=== PATIENT | female | born 1960 | race Caucasian/White ===

== ENCOUNTER 2022-05-16 14:22 | Outpatient (CLI) | payer OTHER | END 2022-05-16 14:23 | disposition home or self-care (01) | LOC: CSHWCC 14:22 | PROVIDERS: ATTEND Nurse Practitioner Family | DX: I87.331 Chronic venous hypertension (idiopathic) with ulcer and inflammation of right lower extremity (principal); I87.312 Chronic venous hypertension (idiopathic) with ulcer of left lower extremity; L97.819 Non-pressure chronic ulcer of other part of right lower leg with unspecified severity; L97.829 Non-pressure chronic ulcer of other part of left lower leg with unspecified severity; R60.0 Localized edema | CPT/HCPCS: 29581; 36416; 99204; G0463 ==

== ENCOUNTER 2022-05-16 16:48 | Outpatient (CLI) | payer OTHER, SELFPAY | END 2022-05-16 16:49 | disposition home or self-care (01) | LOC: CSHULT 16:48 | PROVIDERS: ATTEND Nurse Practitioner Family | DX: I87.332 Chronic venous hypertension (idiopathic) with ulcer and inflammation of left lower extremity (principal); L97.819 Non-pressure chronic ulcer of other part of right lower leg with unspecified severity ==

== ENCOUNTER 2022-06-06 09:54 | Outpatient (CLI) | payer SELFPAY | END 2022-06-06 09:55 | disposition home or self-care (01) | LOC: CSHWCC 09:54 | PROVIDERS: ATTEND Preventive Medicine Undersea and Hyperbaric Medicine | DX: I87.312 Chronic venous hypertension (idiopathic) with ulcer of left lower extremity (principal); L97.829 Non-pressure chronic ulcer of other part of left lower leg with unspecified severity; R60.0 Localized edema | CPT/HCPCS: 99213; G0463 ==

== ENCOUNTER 2022-08-24 13:03 | Outpatient (CLI) | payer SELFPAY | END 2022-08-24 13:04 | disposition home or self-care (01) | LOC: CSHWCC 13:03 | PROVIDERS: ATTEND Nurse Practitioner Family | DX: I87.331 Chronic venous hypertension (idiopathic) with ulcer and inflammation of right lower extremity (principal); I87.312 Chronic venous hypertension (idiopathic) with ulcer of left lower extremity; L97.821 Non-pressure chronic ulcer of other part of left lower leg limited to breakdown of skin; R60.0 Localized edema; L97.811 Non-pressure chronic ulcer of other part of right lower leg limited to breakdown of skin | CPT/HCPCS: 36416; 99213; G0463 ==

== ENCOUNTER 2023-02-14 09:08 | Outpatient (CLI) | payer OTHER, SELFPAY | END 2023-02-14 09:09 | disposition home or self-care (01) | LOC: CSHWCC 09:08 | PROVIDERS: ATTEND Nurse Practitioner Family | DX: R60.0 Localized edema (principal) | CPT/HCPCS: 29581 ==

== ENCOUNTER 2023-02-21 10:50 | Outpatient (CLI) | payer OTHER | END 2023-02-21 10:51 | disposition home or self-care (01) | LOC: CSHWCC 10:50 | PROVIDERS: ATTEND Nurse Practitioner Family | DX: R60.0 Localized edema (principal) | CPT/HCPCS: 29581 ==

== ENCOUNTER 2023-03-24 09:24 | Outpatient (CLI) | payer SELFPAY | END 2023-03-24 09:25 | disposition home or self-care (01) | LOC: CSHWCC 09:24 | PROVIDERS: ATTEND Nurse Practitioner Family | DX: R60.0 Localized edema (principal); S81.801D Unspecified open wound, right lower leg, subsequent encounter | CPT/HCPCS: 29581 ==